=== PATIENT | female | born 1935 | race Caucasian/White ===

== ENCOUNTER → 2017-11-10 | Day surgery (SDC) | payer MEDICARE, OTHER ==
[~2017-11-10] MED LIST: AMLO5TAB4 PO; APIX5TAB PO; ASPI81TA50 PO; LIDOCAINE 1% PF 5 ML VIAL. ONE; LORA0.5T PO; PROPOFOL 20 ML IV ONE; QUIN40TA16 PO
--- NOTE | 2017-11-10 11:20 | PDOC1 ---
HISTORY & PHYSICAL H&P Marilyn Mcgarry [id number] 1935 10/20/2017 03:00 PM 02/09 [employer] [facility], [facility] [address] [place] [id number] Ph. [phone] Patient: Marilyn Mcgarry Date of : 1935 Date: 10/20/2017 3:00 PM Visit Type: Consult This 82 year old female presents for dysphagia. History of Present Illness: 1. dysphagia Marilyn Mcgarry is a 82 year old female who presents for evaluation of dysphagia. The problem is ongoing. The onset was gradual and the symptoms began 4 to 6 months ago. The severity is mild. It occurs 1 times a month. The symptoms happen with solids and liquids. She describes food sticking in the mid chest. There are no aggravating factors. There are no relieving factors. She has had no prior studies. INTAKE COMMENTS: Intake Comments: patient states she is here for having a hard time swallowing PAST MEDICAL/SURGICAL HISTORY (Detailed) Family History (Detailed) Social History: (Detailed) Preferred language is Serbian. Medications (active prior to today) Medication Name Sig Description Start Date Stop Date Refilled Rx Elsewhere quinapril 40 mg tablet take 1 tablet by oral route every day // Y Norvasc 5 mg tablet take 1 tablet by oral route every day // Y lorazepam 1 mg tablet take 1 tablet by oral route 3 times every day as needed / / Y Eliquis 5 mg tablet take 1 tablet by oral route 2 times every day // Y aspirin 81 mg tablet,delayed release take 1 tablet by oral route every day // Y Medications (Added, Continued or Stopped today) Start Date Medication Directions PRN Status PRN Reason Instruction Stop Date aspirin 81 mg tablet,delayed release take 1 tablet by oral route every day N Eliquis 5 mg tablet take 1 tablet by oral route 2 times every day N lorazepam 1 mg tablet take 1 tablet by oral route 3 times every day as needed N Norvasc 5 mg tablet take 1 tablet by oral route every day N quinapril 40 mg tablet take 1 tablet by oral route every day N Allergies: Ingredient Reaction (Severity) Medication Name Comment PENICILLINS Review of Systems System Neg/Pos Details Constitutional Negative Chills, Fever and Malaise. ENMT Negative Sore throat. Eyes Negative Double vision. Respiratory Negative Dyspnea and Wheezing. Cardio Negative Chest pain and Irregular heartbeat/palpitations. GI Positive See HPI. GI Negative See HPI. Negative Dysuria and Hematuria. Endocrine Negative Cold intolerance and Heat intolerance. Psych Negative Anxiety. Integumentary Negative Hives and Rash. MS Negative Joint pain. Izaiah/Lymph Negative Easy bleeding and Easy bruising. Allergic/Immuno Negative Food allergies. Vital Signs Time BP mm/Hg Pulse /min Resp /min Temp F Ht ft Ht in Ht cm Wt lb Wt kg BMI kg/ m2 BSA m2 O2 Sat% 3:36 PM 122/76 77 12 98.0 118.60 53.796 93 Measured By Time Measured by 3:36 PM Yuliana Swygert PHYSICAL EXAM: Exam Findings Details Constitutional Normal Well developed. Eyes Normal Conjunctiva - Right: Normal, Left: Normal. Sclera - Right: Normal, Left: Normal. Nasopharynx Normal Lips/teeth/gums - Normal. Neck Exam Normal Inspection - Normal. Thyroid gland - Normal. Respiratory Normal Inspection - Normal. Auscultation - Normal. Cardiovascular Normal Regular rate and rhythm. No murmurs, gallops, or rubs. Abdomen Normal Inspection - Normal. Anterior palpation - No guarding. No abdominal tenderness. No hepatic enlargement. No spleen enlargement. No hernia. No Ascites. Skin Normal Inspection - Normal. Extremity Normal No edema. Psychiatric Normal Orientation - Oriented to time, place, person & situation. Appropriate mood and affect. Assessment/Plan # Detail Type Description 1. Assessment Dysphagia, unspecified type (R13.10). Patient Plan schedule EGD at [facility] Provider Plan No Eliquis for 3 days before the EGD. Active Patient Care Team Members Name Contact Agency Type Support Role Relationship Active Date Inactive Date Specialty Laurent Sanchez Patient provider PCP Document Electronically signed: Akhil Victor MD 10/21/2017 08:53 AM Document generated by: Akhil Victor 10/21/2017 Jim Culver MD, Family Practice; Haja Rodriguez MD Internal Medicine; Gisella Castillo MD, Internal Medicine; Darline Victor MD Internal Medicine; Akhil Victor MD, Gastroenterology; Keagan Ruggiero MD, Rheumatology, rGetchen Phillips APRN ------ 11/10/17 Patient seen and examined. No change in H&P AKHIL VICTOR MD Nov 10, 2017 11:20
[2017-11-10 12:10] VITALS: BP 122/70
--- NOTE | 2017-11-11 12:09 | PATHOLOGY ---
[facility] Accession Number: [id number] . 01 Material submitted: . PART A: BIOPSY OF STOMACH PART B: LOWER ESOPHAGUS BIOPSY . 01 Clinical history: . Pre-OP DX: Dysphagia Post-OP DX: Gastritis/esophagitis . 02 Diagnosis: A. Gastric biopsy: - Active chronic gastritis, mild to moderate, with Helicobacter organisms identified. . B. Esophageal biopsy, lower esophagus: - Segment of gastric mucosa showing active chronic inflammation. (JPM:toni; 11/11/2017) QMS/11/11/2017 . 02 Comment: Sections of the gastric biopsy reveal a segment of gastric body mucosa showing congestion and mild to moderate active chronic inflammation. A properly controlled immunoperoxidase stain for Helicobacter reveals numerous Helicobacter organisms. There is no evidence of malignancy. . Sections of the lower esophageal biopsy reveal a segment of gastric mucosa showing mild to moderate active chronic inflammation. There is no squamous esophageal mucosa. There is no evidence of Mack's change, dysplasia, or malignancy. (JPM:toni; 11/11/2017) . . Special stain performed: Immunoperoxidase stain for Helicobacter on A1 . 02 Electronically signed: . Kai Acosta MD, Pathologist NPI- [id number] . 01 Gross description: . A. Received in formalin labeled "Marilyn Mcgarry, BX of stomach," is a single segment of garcia soft tissue measuring 0.4 cm in maximum dimension. The specimen is entirely submitted in cassette A1. . B. Received in formalin labeled "Gildascheidt Marilyn, lower esophagus BX," is a single segment of garcia soft tissue measuring 0.3 cm in maximum dimension. The specimen is entirely submitted in cassette B1. (TSD; 11/10/2017) TOB/TOB . 02 Pathologist provided ICD-10: K29.50, K20.9 . 02 CPT . 494345, 481336, P72012 Specimen Comment: A courtesy copy of this report has been sent to Specimen Comment: [phone], . Specimen Comment: Report sent to / DR BROWN Specimen Comment: A duplicate report has been generated due to demographic updates. Performed at: 01 [facility] [address], [place] [id number] MD Ez Ramon MD Phone: [phone] Performed at: 02 [facility] [address] [place], [place] [id number] MD Kai Acosta MD Phone: [phone]
== END | disposition home or self-care (01) ==
LOC: SURG 10:52
PROVIDERS: ATTEND Internal Medicine Gastroenterology
DX: B37.81 Candidal esophagitis (principal); K44.9 Diaphragmatic hernia without obstruction or gangrene; K29.50 Unspecified chronic gastritis without bleeding; Z79.899 Other long term (current) drug therapy; Z79.82 Long term (current) use of aspirin; Z88.0 Allergy status to penicillin
CPT/HCPCS: 43239; 43248; 88305; 88342; J2704

== ENCOUNTER → 2018-08-04 | Outpatient (CLI) | payer MEDICARE, OTHER ==
[2017-11-10 12:10] VITALS: BP 122/70
[~2018-08-04] MED LIST changes: +GADOTERATE 5 MMOL/10ML VIAL. IVP ONE; -LIDOCAINE 1% PF 5 ML VIAL. ONE; -PROPOFOL 20 ML IV ONE
--- NOTE | 2018-08-04 16:08 | KCIC ---
MRI of the brain without contrast 08/04/2018 Clinical History: Hypertension. TIA. Technique: Unenhanced T1-weighted sagittal and axial, T2-weighted axial and coronal and FLAIR, gradient echo and diffusion-weighted axial images of the brain were obtained. Patient refused intravenous gadolinium administration. Findings: No previous imaging studies are available for comparison. There is generalized parenchymal atrophy. Patchy, confluent and multiple focal areas of increased signal intensity are seen within the periventricular and subcortical white matter of both cerebral hemispheres along with the blanca on the FLAIR and T2-weighted images consistent with areas of small vessel ischemic disease. 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 These measure 3 to 4 mm in size. No acute parenchymal abnormality is seen. No extra-axial fluid collection is seen. There is no MRI evidence of acute ischemia/infarction. The paranasal sinuses are essentially clear. There is a small right mastoid effusion. Normal flow voids are seen within the major vascular structures surrounding the brain parenchyma. Impression: No acute parenchymal abnormality is seen. Electronically signed by: Lalo Steiner MD (08/04/2018 4:05 PM) [facility]
== END | disposition home or self-care (01) ==
LOC: KCIC MRI 14:29
PROVIDERS: ATTEND Nurse Practitioner Family
DX: G31.89 Other specified degenerative diseases of nervous system (principal); H74.8X3 Other specified disorders of middle ear and mastoid, bilateral; I10 Essential (primary) hypertension; J44.9 Chronic obstructive pulmonary disease, unspecified; F17.200 Nicotine dependence, unspecified, uncomplicated; Z79.01 Long term (current) use of anticoagulants; Z86.73 Personal history of transient ischemic attack (TIA), and cerebral infarction without residual deficits
CPT/HCPCS: 70551